=== PATIENT | male | born 1985 | race Caucasian/White ===

== ENCOUNTER 2017-12-07 13:06 | Emergency (ER) | payer SELFPAY | END 2017-12-07 14:15 | disposition home or self-care (01) | LOC: ERS 13:06 | DX: J11.1 Influenza due to unidentified influenza virus with other respiratory manifestations (principal); F41.9 Anxiety disorder, unspecified; F32.9 Major depressive disorder, single episode, unspecified; F17.210 Nicotine dependence, cigarettes, uncomplicated; Z87.442 Personal history of urinary calculi | CPT/HCPCS: 99283 ==

== ENCOUNTER 2017-12-08 15:56 | Emergency (ER) | payer SELFPAY | END 2017-12-08 17:07 | disposition left against medical advice (07) | LOC: ERS 15:56 | DX: Z53.21 Procedure and treatment not carried out due to patient leaving prior to being seen by health care provider (principal) ==

== ENCOUNTER 2018-02-13 11:23 | Emergency (ER) | payer SELFPAY ==
[2018-02-13 12:27] LABS: Bilirubin Negative (Negative); Blood, Urine Negative (Negative); Clarity CLEAR (Clear); Glucose, Urine (Dipstick) Negative (Negative); Leukocyte Negative (Negative); Nitrite Negative (Negative); Protein, Urine (Dipstick) Negative (Neg-Trace); Specific Gravity, Urine 1.026 (1.002-1.036); Urobilinogen 0.2 mg/dL (0.2-1.0); pH, Urine 6.5 (5.0-9.0)
[2018-02-13] MEDS ORDERED: Ketorolac Tromethamine 30 MG/ML VIAL ONE (12:38)
[2018-02-13] MEDS ORDERED: Ondansetron HCl/PF 4 MG/2 ML Vial ONE (12:43)
[2018-02-13 12:57] LABS: #Basophils 0.1 thou/uL (0.0-0.2); #Eosinphils 0.3 thou/uL (0.0-0.7); #Lymphocytes 1.7 thou/uL (1.20-3.40); #Monocytes 0.7 thou/uL (0.11-0.59); #Neutrophils 3.6 thou/uL (1.40-6.50); %Basophils 0.8 % (0.0-1.0); %Eosinophils 4.9 % (0.0-10.0); %Lymphocytes 26.7 % (21.0-51.0); %Monocytes 10.7 % (0.0-10.0); %Neutrophils 56.9 % (42.0-75.0); Hemoglobin 13.4 g/dL (14.0-18.0); Mean Corpuscular HGB CONC 32.5 g/dL (32.0-36.0); Mean Corpuscular Hemoglobin 29.5 pg (27.0-31.0); Mean Corpuscular Volume 90.9 fl (80.0-94.0); Mean Platelet Volume 8.5 fL (7.4-10.4); Platelet Count 224 thou/uL (130-400); RBC Distribution Width 12.5 % (11.5-14.5); Red Blood Cell (RBC) Count 4.54 mill/uL (4.70-6.10); White Blood Cell (WBC) Count 6.4 thou/uL (4.8-10.8)
[2018-02-13 13:27] LABS: ALT (SGPT) 28 U/L (8-55); AST (SGOT) 21 U/L (5-34); Albumin 3.9 g/dL (3.5-5.0); Alkaline Phosphatase 57 U/L (40-150); Anion Gap 12 mmol/L (10-20); BUN (Urea Nitrogen) 11 mg/dL (8.9-20.6); Bilirubin, Total 0.3 mg/dL (0.2-1.2); Calc. Creatinine Clearance 0 mL/min (70-130); Calcium 8.9 mg/dL (7.8-10.44); Carbon Dioxide 23 mmol/L (22-29); Chloride 106 mmol/L (98-107); Estimated GFR-MDRD Greater than 90; Globulin 2.9 g/dL (2.4-3.5); Glucose 95 mg/dL (70-105); Lipase 14 U/L (8-78); Potassium 4.2 mmol/L (3.5-5.1); Protein, Total 6.8 g/dL (6.0-8.3); Sodium 137 mmol/L (136-145)
--- NOTE | 2018-02-13 13:33 | ULT ---
BILATERAL RENAL ULTRASOUND: Date: 02/13/18 HISTORY: Right flank pain. FINDINGS: Right kidney measures 10.2 cm in length. Left kidney measures 11.0 cm. No hydronephrosis. There is so me tiny echogenic foci in the mid pole of the left kidney could potentially represent tiny calculi, a lthough it is difficult to confirm by ultrasound. Kidneys are otherwise unremarkable. The bladder is contracted and not well evaluated. IMPRESSION: Unremarkable renal ultrasound. POS: [facility]
== END 2018-02-13 14:30 | disposition home or self-care (01) ==
LOC: ERS 11:23
DX: R10.9 Unspecified abdominal pain (principal); F41.9 Anxiety disorder, unspecified; F32.9 Major depressive disorder, single episode, unspecified; F90.9 Attention-deficit hyperactivity disorder, unspecified type; F17.210 Nicotine dependence, cigarettes, uncomplicated
CPT/HCPCS: 36415; 76770; 80053; 81003; 83690; 85025; 85610; 96361; 96374; 96375; J1885; J2405

== ENCOUNTER 2018-06-24 16:45 | Emergency (ER) | payer SELFPAY ==
[~2018-06-24 16:45] MED LIST: ISOVUE-370 76%-LOCM 1 ML ONE
[2018-06-24 18:00] LABS: #Basophils 0.1 thou/uL (0.0-0.2); #Eosinphils 0.3 thou/uL (0.0-0.7); #Lymphocytes 2.4 thou/uL (1.20-3.40); #Monocytes 0.9 thou/uL (0.11-0.59); #Neutrophils 6.5 thou/uL (1.40-6.50); %Basophils 1.2 % (0.0-1.0); %Eosinophils 3.3 % (0.0-10.0); %Lymphocytes 23.7 % (21.0-51.0); %Monocytes 8.4 % (0.0-10.0); %Neutrophils 63.4 % (42.0-75.0); Hemoglobin 14.5 g/dL (14.0-18.0); Mean Corpuscular Hemoglobin 30.6 pg (27.0-31.0); Mean Corpuscular Volume 87.4 fL (78.0-98.0); Mean Platelet Volume 8.1 fL (7.4-10.4); Platelet Count 246 thou/uL (130-400); RBC Distribution Width 12.3 % (11.5-14.5); Red Blood Cell (RBC) Count 4.74 mill/uL (4.70-6.10); White Blood Cell (WBC) Count 10.3 thou/uL (4.8-10.8)
[2018-06-24 18:14] LABS: ALT (SGPT) 22 U/L (8-55); AST (SGOT) 17 U/L (5-34); Albumin 4.2 g/dL (3.5-5.0); Alkaline Phosphatase 68 U/L (40-150); Anion Gap 12 mmol/L (10-20); BUN (Urea Nitrogen) 11 mg/dL (8.9-20.6); Bilirubin, Total 0.2 mg/dL (0.2-1.2); Calc. Creatinine Clearance 0 mL/min (70-130); Calcium 9.2 mg/dL (7.8-10.44); Carbon Dioxide 25 mmol/L (22-29); Chloride 104 mmol/L (98-107); Estimated GFR-MDRD Greater than 90; Globulin 3.5 g/dL (2.4-3.5); Glucose 90 mg/dL (70-105); Potassium 4.1 mmol/L (3.5-5.1); Protein, Total 7.7 g/dL (6.0-8.3); Sodium 137 mmol/L (136-145)
[2018-06-24 18:41] LABS: Bilirubin Negative (Negative); Blood, Urine Negative (Negative); Clarity CLEAR (Clear); Glucose, Urine (Dipstick) Negative (Negative); Leukocyte Negative (Negative); Nitrite Negative (Negative); Protein, Urine (Dipstick) Negative (Neg-Trace); Specific Gravity, Urine 1.019 (1.002-1.036); Urobilinogen 0.2 mg/dL (0.2-1.0)
[2018-06-24] MEDS ORDERED: Ondansetron ODT 4 MG TAB ONE (20:08)
--- NOTE | 2018-06-24 23:44 | ULT ---
TESTICULAR ULTRASOUND: 06/24/18 COMPARISON: 06/03/11. HISTORY: Testicular pain. TECHNIQUE: Metz scale, color flow, doppler imaging with spectral waveform analysis performed in the left and rig ht testicle. FINDINGS: RIGHT HEMISCROTUM: The right testicle has a homogeneous echotexture. No masses. Right testicle measures 4.5 x 2.3 x 2.7 cm. There is a hypoechoic area adjacent to the head of the epididymis measuring 4 mm. Overall, the ri ght epididymis measures 0.8 x 0.6 cm. No significant fluid in the right hemiscrotum. LEFT HEMISCROTUM: The left testicle has a homogeneous echotexture. No testicular masses. Left testicle measures 4.2 x 2 .3 x 3.4 cm. There is a normal appearing epididymis measuring 1,1 x 1.1 x 0.8 cm. No significant flui d in the left hemiscrotum. No evidence of varicoceles. TESTICULAR DOPPLER: There is symmetric flow to both testicles. IMPRESSION: 1. No evidence of absent or decreased vascular flow to the testicles. 2. Nonspecific hypoechoic area exophytic in location adjacent to the right epididymis. Significa nce is uncertain. Lesion is not present on a previous exam. Nonemergent urology consultation is recom mended for further evaluation. POS: [facility]
[2018-06-24] MEDS ORDERED: traMADol HCl 50 MG TAB ONE (23:46)
[2018-06-24] MEDS ORDERED: cefTRIAXone\\ROCEPHIN 250 MG VIAL ONE (23:47)
[2018-06-24] MEDS ORDERED: Lidocaine 1% PF 5 ML VIAL ONE (23:47)
--- NOTE | 2018-06-24 23:53 | CT ---
ABDOMEN WITH CONTRAST PELVIC CT WITH CONTRAST 06/24/18 COMPARISON: 05/12/17 HISTORY: Lower abdominal pain x4 days. Symptoms are worsening. FINDINGS: ABDOMEN CT: Lung bases are clear. Heart size is normal. No pericardial effusion. The descending thoracic aorta a nd abdominal aorta have a normal caliber. No periaortic fat stranding. Intra and extrahepatic portal vein is patent. Symmetric attenuation of the psoas muscles. Unremarkable gallbladder. Liver, spleen, pancreas, and adrenal glands have appropriate enhancement. No gastrohepatic, retrocrural or periportal lymphadenopathy. Symmetric enhancement of the kidneys. Bilaterally, no obstructive uropathy. No mesenteric mass, lymphadenopathy, free air or free fluid. Umbilical hernia containing mesenteric f at is noted. No bowel herniation. Limited evaluation of the alimentary canal due to lack of oral contrast. Gastric mucosa and duodenum are unremarkable. Multiple normal caliber small bowel loops. Ileocecal junction is normal. Normal kaya iber appendix. Scattered fecal material in a nondistended, nondilated colon. Occasional diverticulum. No diverticulitis. As stated above, there is no definite lymphadenopathy in the mesentery. However, there is a nonspecif ic right lower quadrant lymph node measuring 0.8 x 1.3 cm. A second nonspecific lymph node is also no vangie, measuring 1.0 x 0.7 cm. Findings are similar to the prior exam. PELVIC CT: No mass, lymphadenopathy, free air or free fluid. The urinary bladder is unremarkable. No lytic or blastic lesions in the osseous structures. IMPRESSION: Stable nonspecific mesenteric lymph nodes in the right lower quadrant mesentery. These lymph nodes ar e appreciated on an examination from May 2017. No acute abnormality in the abdomen or pelvis. No marco dence of obstructive uropathy. Normal caliber appendix is identified. POS: [facility]
== END 2018-06-25 00:12 | disposition home or self-care (01) ==
LOC: ERS 16:45
DX: R10.30 Lower abdominal pain, unspecified (principal); F90.9 Attention-deficit hyperactivity disorder, unspecified type; F41.9 Anxiety disorder, unspecified; F32.9 Major depressive disorder, single episode, unspecified; F17.210 Nicotine dependence, cigarettes, uncomplicated
CPT/HCPCS: 36415; 74177; 76870; 80053; 81003; 83690; 85025; 86140; 93976; 96372; J0696; J2001; Q0162

== ENCOUNTER 2019-06-20 13:13 | Emergency (ER) | payer OTHER, SELFPAY ==
[2019-06-20] MEDS ORDERED: Ondansetron PF 4 MG/2 ML Vial ONE (13:33)
[2019-06-20] MEDS ORDERED: Ketorolac Tromethamine 30 MG/ML VIAL ONE (13:33)
[2019-06-20 13:51] LABS: #Basophils 0.1 thou/uL (0.0-0.2); #Eosinphils 0.3 thou/uL (0.0-0.7); #Lymphocytes 2.4 thou/uL (1.20-3.40); #Monocytes 0.7 thou/uL (0.11-0.59); #Neutrophils 5.5 thou/uL (1.40-6.50); %Basophils 0.6 % (0.0-1.0); %Eosinophils 3.8 % (0.0-10.0); %Lymphocytes 26.5 % (21.0-51.0); %Monocytes 7.9 % (0.0-10.0); %Neutrophils 61.2 % (42.0-75.0); Hemoglobin 13.5 g/dL (14.0-18.0); Mean Corpuscular HGB CONC 32.7 g/dL (32.0-36.0); Mean Corpuscular Hemoglobin 28.7 pg (27.0-31.0); Mean Corpuscular Volume 87.8 fL (78.0-98.0); Mean Platelet Volume 8.5 fL (7.4-10.4); Platelet Count 259 thou/uL (130-400); RBC Distribution Width 12.8 % (11.5-14.5); Red Blood Cell (RBC) Count 4.71 mill/uL (4.70-6.10)
[2019-06-20 14:10] LABS: ALT (SGPT) 24 U/L (8-55); AST (SGOT) 16 U/L (5-34); Albumin 4.1 g/dL (3.5-5.0); Alkaline Phosphatase 63 U/L (40-150); Anion Gap 13 mmol/L (10-20); BUN (Urea Nitrogen) 10 mg/dL (8.9-20.6); Bilirubin, Total 0.3 mg/dL (0.2-1.2); Calc. Creatinine Clearance 0 mL/min (70-130); Calcium 9.3 mg/dL (7.8-10.44); Carbon Dioxide 24 mmol/L (22-29); Chloride 105 mmol/L (98-107); Estimated GFR-MDRD Greater than 90; Globulin 3.6 g/dL (2.4-3.5); Glucose 123 mg/dL (70-105); Potassium 4.3 mmol/L (3.5-5.1); Protein, Total 7.7 g/dL (6.0-8.3); Sodium 138 mmol/L (136-145)
[2019-06-20] MEDS ORDERED: Morphine 4 MG/ML VIAL ONE (14:17)
[2019-06-20 15:04] LABS: Bilirubin Negative (Negative); Blood, Urine Negative (Negative); Clarity Clear (Clear); Glucose, Urine (Dipstick) Normal (Negative); Leukocyte Negative Leu/uL (Negative); Nitrite Negative (Negative); Protein, Urine (Dipstick) 10 mg/dL (Neg-Trace); Urobilinogen Normal mg/dL (Less than 2)
== END 2019-06-20 15:55 | disposition home or self-care (01) ==
LOC: ERS 13:13
DX: R10.9 Unspecified abdominal pain (principal); F90.9 Attention-deficit hyperactivity disorder, unspecified type; F41.9 Anxiety disorder, unspecified; F32.9 Major depressive disorder, single episode, unspecified; Z79.899 Other long term (current) drug therapy; Z87.891 Personal history of nicotine dependence
CPT/HCPCS: 80053; 81003; 85025; 87086; 96361; 96374; 96375; J1885; J2270; J2405

== ENCOUNTER 2023-12-19 10:37 | Emergency (ER) | payer SELFPAY ==
[2023-12-19] MEDS ORDERED: Lidocaine 1% w/Epinephrine 1:100K 20 ML VIAL ONE (11:03)
[2023-12-19] MEDS ORDERED: Bacitracin 1 PK ONE (11:07)
== END 2023-12-19 11:49 | disposition home or self-care (01) ==
LOC: ERS 10:37
DX: S61.214A Laceration without foreign body of right ring finger without damage to nail, initial encounter (principal); F17.290 Nicotine dependence, other tobacco product, uncomplicated; W25.XXXA Contact with sharp glass, initial encounter
CPT/HCPCS: 12001; 99283